=== PATIENT | female | born 1975 | race Caucasian/White ===

== ENCOUNTER 2020-04-11 19:31 | Emergency (ER) | payer MEDICAID, SELFPAY ==
[2020-04-11 19:32] VITALS: BP 123/70; PULSE 92; RESP 16; TEMP 36.8; O2SAT 99; BMI 26.6
[2020-04-11 20:02] LABS: Microscopic, Urine URINE MICROSCOPIC (MICROSCOPIC)
[2020-04-11 20:04] LABS: Appearance,Urine CLEAR (Clear); Bilirubin,Urine Negative (Negative); Blood, Urine Negative (Negative); Color,Urine YELLOW (Yellow); Glucose,Urine (UA) Negative (Negative); Ketones,Urine Negative (Negative); Leukocyte Esterase,Urine Negative (Negative); Nitrate,Urine Negative (Negative); PH,Urine 6.5 (5.0-8.5); Protein,Urine TRACE (Negative); Urobilinogen,Urine 0.2 EU/dl (0.2)
[2020-04-11 20:05] LABS: Urine Pregnancy, HCG Qual. Positive (Negative)
[2020-04-11 20:23] LABS: Basophils # 0.1 K/mm3 (0-0.2); Basophils % 0.3 % (0.1-2.0); Eosinophils # 0.1 K/mm3 (0.0-0.4); Eosinophils % 0.6 % (0.1-12.0); Hemoglobin 9.3 g/dL (12.2-16.2); Lymphocytes # 2.6 K/mm3 (0.7-4.5); Lymphocytes % 14.9 % (10-50); Mean Corpuscular HGB Conc 29.9 g/dL (31.8-35.4); Mean Corpuscular Hemoglobin 25.6 pg (27.0-31.2); Mean Corpuscular Volume 85.5 fl (81-99); Mean Platelet Volume 6.5 fl (7.4-10.4); Monocytes # 0.7 K/mm3 (0.1-1.0); Monocytes % 3.9 % (1.7-9.3); Neutrophils % 80.3 % (37.0-80.0); Platelet Count 625 K/mm3 (142-424); Red Blood Count 3.62 M/mm3 (4.20-5.40); Red Cell Distribution Width 18.5 % (11.5-17.5); White Blood Count 17.4 K/mm3 (4.8-10.8)
[2020-04-11 20:28] LABS: MANUAL DIFFERENTIAL MANUAL DIFFERENTIAL (MANUAL DIFF)
[2020-04-11 20:41] LABS: Alanine Aminotransferase 24 U/L (12-78); Albumin Level 3.9 g/dl (3.5-5.0); Albumin/Globulin Ratio 1.2 (1.1-1.8); Alkaline Phosphatase 94 U/L (38-126); Anion Gap 10.9 mEq/L (5-15); Aspartate Amino Transferase 29 U/L (14-36); Bilirubin,Total 0.2 mg/dl (0.2-1.3); Blood Urea Nitrogen 5 mg/dl (7-17); Calcium 9.1 mg/dl (8.4-10.2); Carbon Dioxide 22 mmol/L (22.0-30.0); Chloride 108 mmol/L (98-107); Creatinine Clearance Estimated 140 mL/min (50-200); Estimated Glomerular Filt Rate 110 ml/min (>60); GFR (African American) 133 ML/MIN (>60); Globulin 3.3 g/dL (1.3-3.2); Glucose 121 mg/dl (74-100); Potassium 3.9 mmoL/L (3.5-5.1); Sodium 137 mmol/L (136-145); Total Protein,Serum 7.2 g/dl (6.3-8.2)
[2020-04-11 20:43] LABS: Bacteria,Urine 3+ /lpf; RBC,Urine Occasional #/hpf (0-3); Squamous Epithelial Cell,Urine 20-50 #/hpf (0-5)
--- NOTE | 2020-04-11 20:56 | US_ITS ---
PROCEDURE: US OB TRANSVAGINAL CLINICAL INDICATION: fall. pt states shes leaking fluid Pain, leaking amniotic fluid after fall. COMPARISON: No exams were available for comparison FINDINGS: There is a single live fetus present which is in breech presentation. Average ultrasound age is 17 weeks 3 days. All parameters correlate. Heart rate is 1 5 6 beats per minute. The placenta is posterior in implantation and grade 1. No previa or abruption. The cervix is closed and measures 3 cm. IMPRESSION: Live IUP at 17 weeks 5 days. Please see above for detail Estimated due date by Ultrasound is Dictated by: Jerod Cade MD 04/12/2020 05:45 Jerod Cade MD in [place] 04/12/2020 05:45
--- NOTE | 2020-04-11 20:56 | HMH.EDFALL ---
ED Disposition Clinical Impression: Lumbar back pain Fall Qualifiers: Encounter type: initial encounter Qualified Code(s): W19.XXXA - Unspecified fall, initial encounter Qualifiers: Weeks of gestation: 17 weeks Qualified Code(s): Z3A.17 - 17 weeks gestation of Disposition: Home, Self-Care Condition on Discharge: Good Instructions: DI for -- Discomforts and Remedies Additional Instructions: see pcp and ob Referrals: Surinder Rivera [Primary Care Provider] - Tito Dahl MD [Staff Physician] - - Critical Care Critical Care Time: No Attestation: On 04/11/20, the high probability of a clinically significant, sudden or life threatening deterioration of the following system(s) required my full and direct attention, intervention and personal management. The time I documented below is in addition to time spent performing reported procedures but includes the following listed in this critical care notation. Medical Decision Making - Medical Records Medical records reviewed: Yes: I reviewed the patient's medical records. - [place] Inquiry Pt receiving controlled substance: No Vital Signs: 04/11/20 19:32 Temperature 98.3 F Temperature Source Oral Pulse Rate [Left Radial] 92 H Respiratory Rate 16 Blood Pressure [Right Arm] 123/70 Blood Pressure Mean [Right Arm] 87 Blood Pressure Source [Right Arm] Automatic Cuff Blood Pressure Position [Right Arm] Sitting 02 Sat by Pulse Oximetry 99 Oxygen Delivery Method Room Air - Lab Data Lab results reviewed: Yes: I reviewed the patient's lab results. Lab Results 04/11/20 19:50: Urine Color Yellow, Urine Appearance Clear, Urine pH 6.5, Ur Specific [place] 1.010, Urine Protein Trace, Urine Glucose (UA) Negative, Urine Ketones Negative, Urine Blood Negative, Urine Nitrate Negative, Urine Bilirubin Negative, Urine Urobilinogen 0.2, Ur Leukocyte Esterase Negative, Urine RBC Occasional, Urine WBC 5-10, Ur Squamous Epith Cells 20-50, Urine Bacteria 3+ 04/11/20 19:50: Urine HCG, Qual Positive 04/11/20 20:10: WBC 17.4 H, RBC 3.62 L, Hgb 9.3 L, Hct 31.0 L, MCV 85.5, MCH 25.6 L, MCHC 29.9 L, RDW 18.5 H, Plt Count 625 H, MPV 6.5 L, Neut % (Auto) 80.3 H, Lymph % (Auto) 14.9, [place] % (Auto) 3.9, Eos % (Auto) 0.6, Baso % (Auto) 0.3, Neut # (Auto) 14.0 H, Lymph # (Auto) 2.6, [place] # (Auto) 0.7, Eos # (Auto) 0.1, Baso # (Auto) 0.1, Total Counted 100, Neutrophils % (Manual) 81 H, Lymphocytes % (Manual) 13, Monocytes % (Manual) 5, Eosinophils % (Manual) 1, Platelet Estimate Marked increase, RBC Morphology Normal 04/11/20 20:10: Sodium 137, Potassium 3.9, Chloride 108 H, Carbon Dioxide 22, Anion Gap 10.9, BUN 5 L, Creatinine 0.60, Estimated Creat Clear 140, Estimated GFR 110, Est GFR ( Amer) 133, Glucose 121 H, Calcium 9.1, Total Bilirubin 0.2, AST 29, ALT 24, Alkaline Phosphatase 94, Total Protein 7.2, Albumin 3.9, Globulin 3.3 H, Albumin/Globulin Ratio 1.2, HCG, Quant [id number] H 04/11/20 21:10: Membrane Rupture Negative Result diagrams: 04/11/20 20:10 04/11/20 20:10 Orders (Tests/Meds): ORDERS Category Date Time Status Urine Culture Stat Micro 04/11/20 19:50 Received US OB transvaginal Stat Ultrasound 04/11/20 20:56 Taken - US Data US Images: Pelvis ED US Reviewed: Yes: I discussed the US results w/the radiologist Findings Narrative: iup 17 weeks Fall HPI - General Chief Complaint: Fall Stated Complaint: 13 wk preg back pain Time Seen by Provider: 04/11/20 20:00 Mode of Arrival: Ambulatory Source of Information: Patient, Medical Record Limitations: No Limitations Description of Symptoms (Recalled from ER Triage Doc. by RN): pt stated she believes she is 14 weeks but is unsure because she hasnt recieved care. pt stated she slipped in her driveway tonight and fell on her bottom. pt complains of minimal lower back pain and stated she believes shes leaking fluid from her vagina but denies any blood. pt is tearf
--- NOTE | 2020-04-11 21:16 | PC.NURSE ---
pt to RAD
[2020-04-11 21:18] LABS: Eosinophils % 1 % (0-3); Lymphocytes % 13 % (10-50); Monocytes % 5 % (2-9); Neutrophils % 81 % (42-76); Platelet Estimate Marked Increase; RBC Morphology Normal; Total Cells Counted 100
[2020-04-11 21:23] LABS: HCG,Quantitative 14289 mIU/ml (0-5.42)
[2020-04-11 21:42] LABS: Fetal Membrane Rupture (Rapid) Negative (Negative)
[2020-04-11 22:17] VITALS: BP 119/69; PULSE 87; RESP 16; TEMP 36.8; O2SAT 99
== END 2020-04-11 22:20 | disposition home or self-care (01) ==
PROVIDERS: Emergency Medicine; Emergency Provider Emergency Medicine; PCP Family Medicine
DX: Z3A.17 17 weeks gestation of pregnancy (principal); M54.5 Low back pain; M54.2 Cervicalgia; W01.0XXA Fall on same level from slipping, tripping and stumbling without subsequent striking against object, initial encounter; Y92.014 Private driveway to single-family (private) house as the place of occurrence of the external cause
CPT/HCPCS: 76817; 80053; 81001; 81025; 84112; 84702; 85007; 85025; 87086; 99283

== ENCOUNTER 2020-08-31 20:29 | Inpatient (IN) | payer MEDICAID, SELFPAY ==
[2020-08-31 20:48] VITALS: BMI 31.6
[2020-08-31 20:59] LABS: Basophils # 0.1 K/mm3 (0-0.2); Basophils % 0.4 % (0.1-2.0); Chloride 109 mmol/L (98-107); Eosinophils # 0.1 K/mm3 (0.0-0.4); Eosinophils % 0.8 % (0.1-12.0); Hematocrit 32.7 % (37.0-47.0); Hemoglobin 10.5 g/dL (12.2-16.2); Lymphocytes # 2.3 K/mm3 (0.7-4.5); Lymphocytes % 16.8 % (10-50); Mean Corpuscular HGB Conc 31.9 g/dL (31.8-35.4); Mean Corpuscular Hemoglobin 27.2 pg (27.0-31.2); Mean Corpuscular Volume 85.3 fl (81-99); Mean Platelet Volume 7.6 fl (7.4-10.4); Monocytes # 0.6 K/mm3 (0.1-1.0); Monocytes % 4.2 % (1.7-9.3); Neutrophils # 10.8 K/mm3 (1.8-7.8); Neutrophils % 77.8 % (37.0-80.0); Platelet Count 517 K/mm3 (142-424); Red Blood Count 3.84 M/mm3 (4.20-5.40); Red Cell Distribution Width 18.7 % (11.5-17.5); Sodium 135 mmol/L (136-145); White Blood Count 13.9 K/mm3 (4.8-10.8)
[2020-08-31 21:01] LABS: Alanine Aminotransferase 12 U/L (12-78); Alkaline Phosphatase 171 U/L (38-126); Aspartate Amino Transferase 20 U/L (14-36); Bilirubin,Total 0.5 mg/dl (0.2-1.3); Blood Urea Nitrogen 6 mg/dl (7-17); Carbon Dioxide 19 mmol/L (22.0-30.0); Creatinine Clearance Estimated 199 mL/min (50-200); Estimated Glomerular Filt Rate 135 ml/min (>60); GFR (African American) 164 ML/MIN (>60)
[2020-08-31 21:02] LABS: Albumin Level 3.7 g/dl (3.5-5.0); Albumin/Globulin Ratio 1.2 (1.1-1.8); Glucose 97 mg/dl (74-100); Total Protein,Serum 6.7 g/dl (6.3-8.2)
--- NOTE | 2020-08-31 21:24 | HMH.HP ---
*Admission Date: 08/31/20 *Chief complaint: Spontaneous rupture of membranes at 37-6/7 weeks *History of present illness: This 44-year-old 7 para 3 AB 3 (3 early spontaneous miscarriages) white female presented to labor and delivery with spontaneous rupture of membranes (grossly positive). She has had care in [facility] with a group of midwives (written records unavailable, but phone report indicates first visit at 23 weeks, but an otherwise uncomplicated ). She had an ultrasound at 32 weeks for growth and anatomy, which apparently was normal. History of marijuana use, but denies usage recently. She does admit to smoking 5 cigarettes a day, and denies alcohol consumption. By the telephone history, her glucose was negative, as was her hepatitis B screen and hepatitis C screen. Rubella nonimmune. Blood type O+ with negative antibodies. HIV negative. Recent hemoglobin was 8.6 g with hematocrit 29.7%, but hemoglobin drawn this evening is 10.5 g. White count 13.9. Her labs are otherwise relatively normal, except for high platelet count of 517. Group B strep status is unknown, and so she will be administered intravenous ampicillin (she denies allergy to penicillin). The patient states that with the exception of her 3 early miscarriages, her other 3 pregnancies were normal (resolved placenta previa in one of them) and resulted in vaginal deliveries. Her EDC is 09/15/2020. Review of systems is negative for HEENT, cardiopulmonary, GI, , musculoskeletal, neurologic, and psychiatric histories. Her family history is noncontributory. Her only previous surgery was a tonsillectomy. The father the baby is apparently not involved at this time. On physical examination, she is a well-developed, well-nourished, white female, in no acute distress. She is florencio every 5 minutes or so, and desires an epidural. Her blood pressure is 130/83. Pulse 80. Respirations 16. She is afebrile. HEENT: Normocephalic, pupils equal, round and react to light. Neck supple, no JVD or thyromegaly. Lungs are clear to percussion and auscultation. Heart rate is 80, normal sinus rhythm; no murmurs, rubs or gallops. Abdomen soft, with good bowel sounds. Uterine fundus is 36 cm. heart rate in the 140s. No hernia or scars. No tenderness. Extremities normal. DTRs normal. Pelvic examination: External genitalia and BUS within normal limits. Introitus marital. Cervix 100% effaced, 6 cm, a presenting vertex at -2 station. Bag of water not palpable. No pelvic abnormalities are appreciated. Rectal examination not performed. Impression: Multigravid female at 3 7 6/7 weeks in active labor with rupture of membranes. She requests an epidural and that has been ordered. Toxicology screen and 19 screen are pending. Vaginal delivery is anticipated. [facility] History Medical History: Reports:: Anxiety *Have you ever received a pneumonia vaccine?: No *Have you received a flu vaccine this season?: No Laterality Cases: Bilateral: Tonsillectomy Other Surgeries: Yes: No Previous Surgery Amputation: No Fractures: No - *Social History Last grade of school completed: High school graduate Smoking Status: Current some day smoker Tobacco Type: cigarettes # Packs/Day (cigarettes): 5 (cigarettes) #Yrs smoked (if former smoker): 20 Alcohol Intake: never Substance Use Type: denies use *Occupational Status:: other *Travel in the last 8 weeks: None Family Hx:: No significant family history : 7 Para: 3 A: 3 Comment: 36 6/7 weeks Review of Systems - Review of Systems Review of systems:: pertinent systems reviewed and negative unless documented below Meds Allergies Allergy/AdvReac Type Severity Reaction Status Date / Time No Known Allergies Allergy Verified 04/11/20 19:57 Exam Vital signs and Labs for Last 24 Hours: Laboratory Results - last 24 hr 08/31/20 20:14: WBC 13.9 H, RBC 3.84 L, Hgb 10.5 L, Hct 32.7 L, MCV 85.3, MCH
[2020-08-31 21:38] VITALS: BP 127/90; PULSE 94; RESP 18; TEMP 36.6; O2SAT 98; BMI 31.6
[2020-08-31 22:44] LABS: Microscopic, Urine URINE MICROSCOPIC (MICROSCOPIC)
--- NOTE | 2020-08-31 22:47 | P.PN_ITS ---
Internal Medicine - PN: Subj *Date: 08/31/20 *Time: 22:47 (Adderall now in situ and working well. Cervix 100%, 8 cm, pres enting vertex at -2 station. Internal monitor has been placed.) Exam Vital signs and Labs for Last 24 Hours: Temp Pulse Resp BP Pulse Ox 97.9 F 94 H 18 127/90 98 08/31/20 21:38 08/31/20 21:38 08/31/20 21:38 08/31/20 21:38 08/31/20 21:38 Laboratory Results - last 24 hr 08/31/20 20:14: WBC 13.9 H, RBC 3.84 L, Hgb 10.5 L, Hct 32.7 L, MCV 85.3, MCH 27.2, MCHC 31.9, RDW 18.7 H, Plt Count 517 H, MPV 7.6, Neut % (Auto) 77.8, Lymph % (Auto) 16.8, [place] % (Auto) 4.2, Eos % (Auto) 0.8, Baso % (Auto) 0.4, Neut # (Auto) 10.8 H, Lymph # (Auto) 2.3, [place] # (Auto) 0.6, Eos # (Auto) 0.1, Baso # (Auto) 0.1 08/31/20 20:14: Sodium 135 L, Potassium 4.0, Chloride 109 H, Carbon Dioxide 19 L , Anion Gap 11.0, BUN 6 L, Creatinine 0.50 L, Estimated Creat Clear 199, Estimated GFR 135, Est GFR ( Amer) 164, Glucose 97, Calcium 9.0, Total Bilirubin 0.5, AST 20, ALT 12, Alkaline Phosphatase 171 H, Total Protein 6.7, Albumin 3.7, Globulin 3.0, Albumin/Globulin Ratio 1.2 08/31/20 20:14: Blood Type O Positive, Antibody Screen Negative I & O for Last 24 hours: Intake & Output 08/29/20 08/30/20 08/31/20 09/01/20 11:59 11:59 11:59 11:59 Weight 190 lb
[2020-08-31 23:10] LABS: Appearance,Urine CLEAR (Clear); Bilirubin,Urine Negative (Negative); Blood, Urine Negative (Negative); Color,Urine YELLOW (Yellow); Glucose,Urine (UA) Negative (Negative); Ketones,Urine Negative (Negative); Leukocyte Esterase,Urine Negative (Negative); Nitrate,Urine Negative (Negative); Protein,Urine Negative (Negative); Specific Gravity, Urine 1.015 (1.005-1.030); Urobilinogen,Urine 0.2 EU/dl (0.2)
[2020-08-31 23:23] LABS: Amorphous Sediment,Urine Trace /lpf; Amphetamine/Metha Screen,Urine Negative ng/ml (<1000); WBC,Urine Occasional #/hpf (0-3)
[2020-08-31 23:24] LABS: Barbiturates Screen,Urine Negative ng/ml (<200); Benzodiazepines Screen,Urine Negative ng/ml (<200)
[2020-08-31 23:25] LABS: Cannabinoid Screen,Urine Negative ng/ml (<50); Cocaine Screen,Urine Negative ng/ml (<300)
[2020-08-31 23:26] LABS: Methadone Screen,Urine Negative ng/ml (<300)
[2020-08-31 23:27] LABS: Opiate Screen,Urine Negative ng/ml (<300)
[2020-08-31 23:30] LABS: Phencyclidine Screen,Urine Negative ng/ml (<25)
--- NOTE | 2020-09-01 00:11 | P.PN_ITS ---
[facility] Anesthesia Checklist - Structural Data Admitted From: Inpatient Planned Operative Procedure/s: labor epidural Consent for Planned Operative Procedure(s) Verified: Yes - Airway Assessment C-Spine Mobility Assessed: Yes TMJ Mobility Assessed: Yes Dentition: Good Dentition - Neurological Assessment Level of Consciousness: Awake, Alert, Appropriate - Anesthesia Plan Anesthesia Risk discussed: Yes Anesthesia Plan: Verified ASA Class: II Anesthesia Type: Epidural [facility] History I have reviewed the patient's past medical history: Yes Medical History: Reports:: Anxiety *Have you ever received a pneumonia vaccine?: No *Have you received a flu vaccine this season?: No Anesthesia experience/problems:: none Laterality Cases: Bilateral: Tonsillectomy Other Surgeries: Yes: No Previous Surgery. No: Amputation: No Fractures: No - *Social History Last grade of school completed: High school graduate Smoking Status: Current some day smoker Tobacco Type: cigarettes # Packs/Day (cigarettes): 5 (cigarettes) #Yrs smoked (if former smoker): 20 Alcohol Intake: never Substance Use Type: denies use *Occupational Status:: other *Travel in the last 8 weeks: None - Psychiatric History Pschychiatric History:: Reports:: Anxiety Family Hx:: No significant family history Para: 3 A: 3
--- NOTE | 2020-09-01 00:18 | P.PCN_ITS ---
- Delivery Note Delivery Date:: 09/01/20 Delivery Time:: 00:07 Anesthesia Type: Epidural Was labor medically induced?: No Induction method: none delivered prior to 39 weeks?: Yes Justification for early elective delivery:: Premature ROM Gender: Female at 1 minute: 7 at 5 minutes: 9 Suction Catheter Type: Daisha AF:: clear Delivery Procedure:: This 44-year-old 7, now para 4, AB 3 white female, who had care in [place], [place], presented to labor and delivery approximately 1 hour after spontaneous rupture of membranes at home at 37-6/7 weeks of gestation. At time of admission her cervix was 5 cm dilated with obvious rupture of membranes. She labored until 7 to 8 cm, at which time she was administered an epidural, which worked well. An internal monitor was placed at that time, and the baby looked good throughout her labor. She went steadily to completion and delivered spontaneously, without an episiotomy, at 0007 on 09/01/2020. The baby's nasal and oropharynx were bulb-suctioned, and the baby cried spontaneously on the perineum, as was delivered. There was no nuchal cord, nor was there any meconium. The cord was clamped and cut, 3 vessels were noted to be within the cord, and cord blood was obtained. The cord pH is pending. The baby was handed into the arms of the attending RN, who assigned Apgars of 7 at 1 minute and 9 at 5 minutes to this female (length and weight pending), who will be breast- fed. The placenta delivered spontaneously, intact. The uterus was inspected and was felt to be clean, and was involuting well, with IV Pitocin running. There were no lacerations, and the rectovaginal septum was intact at the close of the procedure. The sponge and needle count was correct. The estimated blood loss was 300 cc. The patient tolerated the procedure well, and was recovered in excellent condition. Her blood type is O+. Her rubella titer (by history) is negative, which will be confirmed prior to subsequent vaccination. Laceration:: vaginal, labial Placental Delivery Description: Spontaneous
[2020-09-01 00:32] LABS: Cord Blood PH 7.33 (7.35-7.45)
[2020-09-01 03:30] VITALS: BP 139/63; PULSE 106; RESP 18; TEMP 36.7; O2SAT 95
--- NOTE | 2020-09-01 06:32 | P.PN_ITS ---
Internal Medicine - PN: Subj *Date: 09/01/20 *Time: 06:32 (This is day of delivery. 6 hours . The patient is a febrile. Vital signs stable. Abdomen soft. Lochia normal. Uterine fundus involuting well. Nursing. Impression: Stable.) Exam Vital signs and Labs for Last 24 Hours: Temp Pulse Resp BP Pulse Ox 98.0 F 106 H 18 139/63 95 09/01/20 03:30 09/01/20 03:30 09/01/20 03:30 09/01/20 03:30 09/01/20 03:30 Laboratory Results - last 24 hr 08/31/20 20:14: WBC 13.9 H, RBC 3.84 L, Hgb 10.5 L, Hct 32.7 L, MCV 85.3, MCH 27.2, MCHC 31.9, RDW 18.7 H, Plt Count 517 H, MPV 7.6, Neut % (Auto) 77.8, Lymph % (Auto) 16.8, [place] % (Auto) 4.2, Eos % (Auto) 0.8, Baso % (Auto) 0.4, Neut # (Auto) 10.8 H, Lymph # (Auto) 2.3, [place] # (Auto) 0.6, Eos # (Auto) 0.1, Baso # (Auto) 0.1 08/31/20 20:14: Sodium 135 L, Potassium 4.0, Chloride 109 H, Carbon Dioxide 19 L , Anion Gap 11.0, BUN 6 L, Creatinine 0.50 L, Estimated Creat Clear 199, Estimated GFR 135, Est GFR ( Amer) 164, Glucose 97, Calcium 9.0, Total Bilirubin 0.5, AST 20, ALT 12, Alkaline Phosphatase 171 H, Total Protein 6.7, Albumin 3.7, Globulin 3.0, Albumin/Globulin Ratio 1.2 08/31/20 20:14: Blood Type O Positive, Antibody Screen Negative 08/31/20 22:39: Urine Color Yellow, Urine Appearance Clear, Urine pH 7.0, Ur Specific [place] 1.015, Urine Protein Negative, Urine Glucose (UA) Negative, Urine Ketones Negative, Urine Blood Negative, Urine Nitrate Negative, Urine Bilirubin Negative, Urine Urobilinogen 0.2, Ur Leukocyte Esterase Negative, Urine WBC Occasional, Amorphous Sediment Trace 08/31/20 22:39: Urine Opiates Screen Negative, Urine Methadone Screen Negative, Ur Barbituates Screen Negative, Ur Phencyclidine Scrn Negative, Ur Amphetamines Screen Negative, U Benzodiazepines Scrn Negative, Urine Cocaine Screen Negative, U Marijuana (THC) Screen Negative 09/01/20 00:25: Cord ABG pH 7.33 L I & O for Last 24 hours: Intake & Output 08/29/20 08/30/20 08/31/20 09/01/20 11:59 11:59 11:59 11:59 Weight 190 lb Microbiology Reports for the Last 24 Hours: Microbiology 08/31/20 21:07 Nasopharyngeal Coronavirus COVID-19 PCR - Final Assessment and Plan (1) Term Status: Acute Category: Medical Code(s): Z34.90 - Encounter for supervision of normal , unspecified, unspecified trimester
[2020-09-01 07:01] LABS: Hematocrit 29.5 % (37.0-47.0)
[2020-09-01 07:26] LABS: Hemoglobin 9.3 g/dL (12.2-16.2)
[2020-09-01 08:30] VITALS: BP 114/62; PULSE 105; RESP 20; TEMP 36.7; O2SAT 95
[2020-09-01 16:50] VITALS: BP 140/81; PULSE 91; RESP 20; TEMP 36.7; O2SAT 97
[2020-09-02] VITALS (7 sets, daily range): BP systolic 104–137; BP diastolic 57–75; PULSE 77–102; RESP 18–20; TEMP 36.7–37.1; O2SAT 95–99
--- NOTE | 2020-09-02 08:40 | HMH.ACPN2 ---
Internal Medicine - PN: Subj *Date: 09/02/20 *Time: 08:40 (This is day #1. The patient is afebrile. Vital signs stable. Lochia normal. Uterine fundus involuting well. Nursing well. Hemoglobin 9.3 g, but clinically stable. She is a smoker and her problem at this point is a deep cough. Her lungs do not sound particularly bad on auscultation, but I have given her an incentive spirometer and I am getting a chest x-ray and a sputum culture. Her Covid screen was negative.) Exam Vital signs and Labs for Last 24 Hours: Temp Pulse Resp BP Pulse Ox 98.1 F 91 H 20 140/81 97 09/01/20 16:50 09/01/20 16:50 09/01/20 16:50 09/01/20 16:50 09/01/20 16:50 I & O for Last 24 hours: Intake & Output 08/30/20 08/31/20 09/01/20 09/02/20 11:59 11:59 11:59 11:59 Weight 190 lb Assessment and Plan (1) Term Status: Acute Category: Medical Code(s): Z34.90 - Encounter for supervision of normal , unspecified, unspecified trimester
--- NOTE | 2020-09-02 08:42 | XR_ITS ---
PROCEDURE: XR CHEST 2V CLINICAL HISTORY: cough, wheezing COMPARISON: No exams were available for comparison FINDINGS: The cardiomediastinal silhouette and pulmonary vascularity are within normal limits. There is silhouetting out of the right heart border with increased density noted in the region of the right middle lobe on the frontal and lateral view. Calcified granuloma is present in the right upper lobe. No acute bony abnormalities. IMPRESSION: Right middle lobe pneumonia Dictated by: Jerod Cade MD 09/02/2020 10:17 Jerod Cade MD in [facility] 09/02/2020 10:17
[2020-09-03 04:00] VITALS: BP 103/59; PULSE 95; RESP 18; TEMP 36.6; O2SAT 97
[2020-09-03 06:30] VITALS: PULSE 85; PULSE 87
[2020-09-03 08:23] VITALS: BP 125/76; PULSE 97; RESP 18; TEMP 36.7; O2SAT 96
--- NOTE | 2020-09-03 09:13 | SW/DCPLANNER ---
Addendum entered by Isabella Uriostegui 09/03/20 13:14: Per Central Intake this case does NOT meet criteria. Central rattan worker has stated that this would need approval from supervisor pipelines and that process could take a couple days. I have informed Central Intake that patient is ready for discharge. I also informed patients nurse (Jacqueline Knapp). Original Note: Received a consult for this patient regarding: late pre-marcos care, positive THC on visit and does not have custody of her other children. I did visit with patient and this morning: infants father was present (Felix Carlson 79 [address]). Juliette stated that patients name is Yessenia Rosario. Father and Juliette did engage in argument once mother made decision for child to have her last name and not fathers. Father stated that if child does not have his last name that he is leaving. Juliette then stated that she has not completed certificate at this time. Once speaking with nurse (Jacqueline Knapp) after my visit she confirmed that certificate has been completed and infant does have Wind[place] last name. Juliette has stated that herself, and other child (Ryan Munson 02/18/01) will reside at [address] [place] [address] in [place] [address]. Micki contact number is [phone]. Juliette stated that she does have two other children: Rohit Munson 06/28/04 and Laureano Munson 04/19/15. Both Rohit and Laureano reside with their father temporarily due to past Social Service interaction. Patient received care at [facility]: limited care due to not finding out she was till 20 weeks and THC at beginning of (07/29/20). Patient stated that she has: crib, clothing, diapers and will be breast feeding. Patient is currently established with [facility]. This case has been reported to Central Intake due to limited care, THC use during , past Social Service involved and fathers behaviors. ID# [id number]. I have informed Central Intake that this patient will be ready for discharge later today.
--- NOTE | 2020-09-03 10:37 | HMH.CONS ---
*Admission Date: 08/31/20 *Reason for consult:: cough *History of present illness: this patient was admitted to ob and had delivery-s 44-year-old 7 para 3 AB 3 (3 early spontaneous miscarriages) white female presented to labor and delivery with spontaneous rupture of membranes (grossly positive). She has had care in [facility] with a group of midwives (written records unavailable, but phone report indicates first visit at 23 weeks, but an otherwise uncomplicated ). She had an ultrasound at 32 weeks for growth and anatomy, which apparently was normal. History of marijuana use, but denies usage recently. She does admit to smoking 5 cigarettes a day, and denies alcohol consumption. By the telephone history, her glucose was negative, as was her hepatitis B screen and hepatitis C screen. Rubella nonimmune. Blood type O+ with negative antibodies. HIV negative. Recent hemoglobin was 8.6 g with hematocrit 29.7%, but hemoglobin drawn this evening is 10.5 g. White count 13.9. Her labs are otherwise relatively normal, except for high platelet count of 517. Group B strep status is unknown, and so she will be administered intravenous ampicillin (she denies allergy to penicillin). The patient states that with the exception of her 3 early miscarriages, her other 3 pregnancies were normal (resolved placenta previa in one of them) and resulted in vaginal deliveries. Her EDC is 09/15/2020. Review of systems is negative for HEENT, cardiopulmonary, GI, , musculoskeletal, neurologic, and psychiatric histories. Her family history is noncontributory. Her only previous surgery was a tonsillectomy. The father the baby is apparently not involved at this time. On physical examination, she is a well-developed, well-nourished, white female, in no acute distress. She is florencio every 5 minutes or so, and desires an epidural. Her blood pressure is 130/83. Pulse 80. Respirations 16. She is afebrile. HEENT: Normocephalic, pupils equal, round and react to light. Neck supple, no JVD or thyromegaly. Lungs are clear to percussion and auscultation. Heart rate is 80, normal sinus rhythm; no murmurs, rubs or gallops. Abdomen soft, with good bowel sounds. Uterine fundus is 36 cm. heart rate in the 140s. No hernia or scars. No tenderness. Extremities normal. DTRs normal. Pelvic examination: External genitalia and BUS within normal limits. Introitus marital. Cervix 100% effaced, 6 cm, a presenting vertex at -2 station. Bag of water not palpable. No pelvic abnormalities are appreciated. Rectal examination not performed. Impression: Multigravid female at 3 7 6/7 weeks in active labor with rupture of membranes. She requests an epidural and that has been ordered. Toxicology screen and 19 screen are pending. Vaginal delivery is anticipated. his 44-year-old 7, now para 4, AB 3 white female, who had care in [place], [place], presented to labor and delivery approximately 1 hour after spontaneous rupture of membranes at home at 37-6/7 weeks of gestation. At time of admission her cervix was 5 cm dilated with obvious rupture of membranes. She labored until 7 to 8 cm, at which time she was administered an epidural, which worked well. An internal monitor was placed at that time, and the baby looked good throughout her labor. She went steadily to completion and delivered spontaneously, without an episiotomy, at 0007 on 09/01/2020. The baby's nasal and oropharynx were bulb-suctioned, and the baby cried spontaneously on the perineum, as was delivered. There was no nuchal cord, nor was there any meconium. The cord was clamped and cut, 3 vessels were noted to be within the cord, and cord blood was obtained. The cord pH is pending. The baby was handed into the arms of the attending RN, who assigned Apgars of 7 at 1 minute and 9 at 5 minutes to this female (length and weight pending), who will be breast-fed. The plac
[2020-09-03 13:03] VITALS: BP 112/59; PULSE 102; RESP 18; TEMP 36.7; O2SAT 97
--- NOTE | 2020-09-03 13:56 | HMH.OBDCSM ---
General - General Admission date:: 08/31/20 Discharge date: 09/03/20 HPI - History of Present Illness History of present illness: She is a 44-year-old 7 now para 4 aborta 3 who is been followed in [facility]. She came in in active labor. Hospital Course Hospital Course: She came in in active labor and progressed to full dilation she delivered spontaneously a liveborn female child at 12:07 on the morning of September 01, 2020. The baby was a liveborn female child weighing 7 pounds 16 ounces and was 18-1/2 inches long. She had Apgars of 7 at 1 minute and 9 at 5 minutes[address] Beasley. She has O+ blood, she has rubella nonimmune and group B streptococcus was unknown. She was doing well post and had some cough and bronchitis his chest x-ray showed a right middle lobe pneumonia and she was started on IV antibiotics. She was seen in consultation by Dr. Farooq. She is doing much better today and she is afebrile. She is breathing well. She will be discharged home to follow-up with me in a couple of weeks time. She would like to have a tubal ligation. She will continue with her azithromycin antibiotics p.o. daily for the next few days. She was given the usual instructions with respect to limiting her activity, driving and sexual activity. She will continue with her vitamins and iron. Her condition on discharge is stable and improved. Rhogam Administration: Not Indicated Objective Vital signs: Temp Pulse Resp BP Pulse Ox 98.1 F 102 H 18 112/59 L 97 09/03/20 13:03 09/03/20 13:03 09/03/20 13:03 09/03/20 13:03 09/03/20 13:03 no acute distress - *Routine HEENT Exam Head: Present: normocephalic Eye: Present: EOMI, PERRL ENT: Present: mucous membranes moist - *Routine Neck Exam Present: supple - *Routine Respiratory Exam Present: CTA bilaterally Comments: She had good air entry bilaterally. There were no crackles or wheezes. DS: Diagnosis - Discharge Diagnosis (1) Term Status: Acute (2) CAP (community acquired pneumonia) Status: Acute (3) Tobacco use Status: Acute (4) Reactive airway disease with acute exacerbation Status: Acute Discharge Plan - Patient Discharge Instructions ACTIVITY: No heavy lifting DIET: continue same diet Additional Instructions: No heavy lifting, no strenuous activity, nothing in the vagina for 6 weeks. Call to scheduled [address] Farooq's office. Office staff will schedule a repeat chest xray. - Follow up Plan Follow up with: Tito Dahl MD [Staff Physician] - Surinder Farooq MD [Staff Physician] - (3 WEEKS) Disposition: Home, Self-Alf Medications: Home Medications Medication Instructions Recorded Confirmed Type Docusate Sodium 100 mg PO DAILY 09/01/20 09/01/20 History Ferrous Sulfate 325 mg PO DAILY 09/01/20 09/01/20 History Vit,Calc76/Iron/Folic 1 day PO DAILY 09/01/20 09/01/20 History [Prenatabs Rx Tablet] Azithromycin [Z-Juan 250mg Tab*] 250 mg PO UD DOSE PK #6 tab 09/03/20 Rx Azithromycin [Zithromax 250mg 250 mg PO DIRECTED #6 tab 09/03/20 Rx tab] predniSONE [Prednisone 20mg 20 mg PO BID #10 tab 09/03/20 Rx Tab] Prescriptions/Medication Reconciliation: New predniSONE [Prednisone 20mg Tab] 20 mg PO BID #10 tab Azithromycin [Zithromax 250mg tab] 250 mg PO DIRECTED #6 tab Azithromycin [Z-Juan 250mg Tab*] 250 mg PO UD DOSE PK #6 tab Continued Vit,Calc76/Iron/Folic [Prenatabs Rx Tablet] 1 day PO DAILY Ferrous Sulfate 325 mg PO DAILY Docusate Sodium 100 mg PO DAILY - Problem Reconciliation Problems Reviewed?: Yes
== END 2020-09-03 15:00 | disposition home or self-care (01) | DRG 805 ==
LOC: OBOUT 20:31 → OB 20:31
PROVIDERS: Admitting Provider Obstetrics & Gynecology; Visit Provider Obstetrics & Gynecology
DX: O99.334 Smoking (tobacco) complicating childbirth (principal); J18.9 Pneumonia, unspecified organism; Z37.0 Single live birth; J45.901 Unspecified asthma with (acute) exacerbation; F17.219 Nicotine dependence, cigarettes, with unspecified nicotine-induced disorders; Z3A.37 37 weeks gestation of pregnancy; O99.53 Diseases of the respiratory system complicating the puerperium
CPT/HCPCS: 59409; 59025; 71046; 80053; 80305; 81001; 82800; 85014; 85018; 85025; 86850; 94640; C1758; J0290; J0456; U0003

== ENCOUNTER → 2021-03-19 16:31 | Outpatient (CLI) | payer MEDICAID, SELFPAY | PROVIDERS: Visit Provider Nurse Practitioner | DX: Z20.822 Contact with and (suspected) exposure to COVID-19 (principal); U07.1 COVID-19 | CPT/HCPCS: C9803; U0003; U0005 ==